=== PATIENT | male | born 1965 | race Caucasian/White ===

== ENCOUNTER 2024-09-21 07:04 | Outpatient (CLI) | payer BC, SELFPAY ==
--- NOTE | 2024-09-21 07:15 | CRLHL7_ITS ---
For Patients: As a result of the Century Cures Act, medical imaging exams and procedure reports are released immediately into your electronic medical record. You may view this report before your referring provider. If you have questions, please contact your health care provider. INDICATION: Low back pain. COMPARISON: 07/10/2024. TECHNIQUE: Sagittal T1, T2, and STIR sequences. Axial T1 and T2 weighted sequences. FINDINGS: Normal vertebral body alignment. No fractures. No vertebral body loss of height. No spondylolisthesis. No ligamentous injury. No suspicious osseous lesions. Normal conus terminates at L1. T12-L1 L1-2 L2-3: No spinal canal neural foraminal narrowing. L3-4: Annular bulge. No narrowing of the spinal canal. No neural foraminal narrowing. L4-5: Annular bulge. Flattening of ventral thecal sac. No narrowing of the spinal canal. No neural foraminal narrowing. L5-S1: Annular bulge. No narrowing of spinal canal. No impingement of the traversing S1 nerve roots. Mild narrowing of left neural foramen. No narrowing of the right neural foramen. Normal visualized SI joints. Normal paraspinal soft tissues. IMPRESSION: 1. Normal alignment. No fractures 2. At L4-5, annular bulge. No spinal canal or neural foraminal narrowing. 3. At L5-S1, annular bulging. No narrowing of the spinal canal. Mild narrowing of the left neural foramina Dictated by Kale Womack MD @ 09/22/2024 9:39:54 AM (Electronically Signed)
== END 2024-09-21 07:05 | disposition home or self-care (01) ==
LOC: MRI 07:06
PROVIDERS: PCP Nurse Practitioner; Visit Provider Orthopaedic Surgery
DX: M54.50 Low back pain, unspecified (principal); M51.26 Other intervertebral disc displacement, lumbar region; M51.27 Other intervertebral disc displacement, lumbosacral region
CPT/HCPCS: 72148